=== PATIENT | female | born 1980 | race Caucasian/White ===

== ENCOUNTER 2020-03-04 15:31 | Outpatient (CLI) | payer BC, SELFPAY ==
--- NOTE | ~2020-03-04 | MM_ITS ---
EXAMINATION: MM screening [facility] BI w alex HISTORY: Screening mammogram TECHNIQUE: Craniocaudal and mediolateral oblique 3-D tomosynthesis images were obtained and synthetic 2-D images were generated. CAD analysis was submitted and interpreted. COMPARISON: 02/05/2019 bilateral digital screening mammogram BREAST PARENCHYMAL COMPOSITION: There are scattered areas of fibroglandular density. FINDINGS: There is no evidence of suspicious mass, calcification, or architectural distortion to sugg est malignancy in either breast. There has been no suspicious interval change. IMPRESSION: 1. No mammographic evidence of malignancy. 2. Recommend routine screening mammography in one year. BI-RADS Category 1: Negative Reviewed, dictated and finalized at location A.
== END 2020-03-04 15:32 | disposition home or self-care (01) ==
LOC: ANHIMG 15:34
PROVIDERS: Visit Provider Obstetrics & Gynecology
DX: Z12.31 Encounter for screening mammogram for malignant neoplasm of breast (principal)
CPT/HCPCS: 77063; 77067

== ENCOUNTER 2021-03-08 15:16 | Outpatient (CLI) | payer BC, SELFPAY ==
--- NOTE | ~2021-03-08 | MM_ITS ---
EXAMINATION: MM screening [facility] BI w alex HISTORY: Screening TECHNIQUE: Craniocaudal and mediolateral oblique 3-D tomosynthesis images were obtained and synthetic 2-D images were generated. CAD analysis was submitted and interpreted. COMPARISON: Comparison to multiple prior studies sequentially, with oldest reviewed study dated 02/05. BREAST PARENCHYMAL COMPOSITION: Breast composed of scattered areas of fibroglandular density. FINDINGS: There is no evidence of suspicious mass, calcification, or architectural distortion to sugg est malignancy in either breast. There has been no suspicious interval change. IMPRESSION: 1. No mammographic evidence of malignancy. 2. Recommend routine screening mammography in one year. BI-RADS Category 1: Negative Reviewed, dictated and finalized at location A.
== END 2021-03-08 15:17 | disposition home or self-care (01) ==
LOC: ANHIMG 15:19
PROVIDERS: Visit Provider Obstetrics & Gynecology
DX: Z12.31 Encounter for screening mammogram for malignant neoplasm of breast (principal)
CPT/HCPCS: 77063; 77067

== ENCOUNTER 2022-10-03 10:51 | Outpatient (CLI) | payer BC, SELFPAY ==
--- NOTE | ~2022-10-03 | MM_ITS ---
EXAMINATION: MM screening [facility] BI w alex HISTORY: Screening TECHNIQUE: Craniocaudal and mediolateral oblique 3-D tomosynthesis images were obtained and synthetic 2-D images were generated. CAD analysis was submitted and interpreted. COMPARISON: Comparison to multiple prior studies sequentially, with oldest reviewed study dated 02/05. BREAST PARENCHYMAL COMPOSITION: Breast composed of scattered areas of fibroglandular density FINDINGS: There are developing asymmetries bilaterally in the upper outer quadrant of both breasts. T here are no suspicious calcifications or architectural distortion. IMPRESSION: 1. Developing bilateral breast asymmetries. 2. Additional mammographic views and possible breast ultrasound are recommended. BI-RADS Category 0: Incomplete: Needs additional imaging evaluation. Reviewed, dictated and finalized at location B. TRICAL ASSEMBLER IMPRESSION: 1. Developing bilateral breast asymmetries. 2. Additional mammographic views and possible breast ultrasound are recommended . BI-RADS Category 0: Incomplete: Needs additional imaging evaluation.
== END 2022-10-03 10:52 | disposition home or self-care (01) ==
LOC: ANHIMG 10:56
PROVIDERS: Visit Provider Obstetrics & Gynecology
DX: Z12.31 Encounter for screening mammogram for malignant neoplasm of breast (principal); R92.8 Other abnormal and inconclusive findings on diagnostic imaging of breast
CPT/HCPCS: 77063; 77067

== ENCOUNTER 2022-10-30 13:48 | Outpatient (CLI) | payer BC, SELFPAY ==
--- NOTE | ~2022-10-30 | MMUS_ITS ---
EXAMINATION: MM diagnostic [facility] BI w alex, US breast BI complete HISTORY: Developing bilateral breast asymmetries reported on 10/03/2022 screening mammogram TECHNIQUE: Additional 3-D tomosynthesis images of both breasts were performed and synthetic 2-D image s were generated. CAD analysis was submitted and interpreted. High resolution complete bilateral aniceto st ultrasound examination including all 4 quadrants and subareolar areas was performed. COMPARISON: 10/03/2022, 03/08/2021, 03/04/2020, 02/05/2019 bilateral screening mammogram examinations. FINDINGS: MAMMOGRAPHIC FINDINGS: No suspicious mass or architectural distortion is evident. There is stable fibroglandular asymmetry s aaron 02/05/2019. No malignant calcification, skin thickening or retraction. No significant new or deve loping density is evident. ULTRASOUND: No suspicious mass or shadowing of either breast is detected. Right breast: 12:00: 4.7 x 5.7 mm sonolucency with through transmission posterior enhancement consistent with small cyst 6:00: Parallel circumscribed hypoechoic 3.3 x 6 mm lesion with through transmission, benign in appear ance 7:00: Parallel circumscribed sonolucency measuring approximately 2.5 x 5.8 mm, without suspicious sha dowing 9:00: 7 x 10 mm simple cyst with through transmission posterior enhancement 10:00: 8 x 12 mm simple cyst with through transmission and posterior enhancement Left breast: 3:00 5 cm from nipple: 3.5 x 7.4 mm cyst 3:00 8 cm from nipple: 5.6 x 9 mm cyst with through transmission, posterior enhancement IMPRESSION: 1. Benign findings 2. Routine annual mammographic screening is recommended. BI-RADS Category 2: Benign finding(s). Reviewed, dictated and finalized at location A. SER AUTOMATIC IMPRESSION: 1. Benign findings 2. Routine annual mammographic screening is recommended. BI-RADS Category 2: Benign finding(s).
== END 2022-10-30 13:49 | disposition home or self-care (01) ==
PROVIDERS: Visit Provider Obstetrics & Gynecology
DX: R92.8 Other abnormal and inconclusive findings on diagnostic imaging of breast (principal)
CPT/HCPCS: 76641; 77062; 77066; G0279

== ENCOUNTER 2024-02-21 16:16 | Outpatient (CLI) | payer BC, SELFPAY ==
--- NOTE | ~2024-02-21 | MM_ITS ---
EXAMINATION: MM screening [facility] BI w alex HISTORY: Screening mammogram TECHNIQUE: Craniocaudal and mediolateral oblique 3-D tomosynthesis images were obtained and synthetic 2-D images were generated. CAD analysis was submitted and interpreted. COMPARISON: 10/03/2022, 03/08/2021 BREAST PARENCHYMAL COMPOSITION:Dense: The breasts are heterogeneously dense, which may obscure small masses. FINDINGS: There is a 1.5 cm circumscribed mass at the upper, outer right breast. No suspicious mass, calcification, or architectural distortion are identified in either breast to suggest malignancy. The re has been no suspicious interval change. IMPRESSION: 1.5 cm circumscribed mass at the upper outer right breast. This probably represents an enlarging cy st given prior imaging findings, however repeat targeted ultrasound at this time is recommended to co nfirm this. BI-RADS Category 0: Incomplete: Needs additional imaging evaluation. Reviewed, dictated and finalized at [facility]. IMPRESSION: 1.5 cm circumscribed mass at the upper outer right breast. This probably repr esents an enlarging cyst given prior imaging findings, however repeat targeted ultrasound at this time is recommended to confirm this. BI-RADS Category 0: Incomplete: Needs additional imaging evaluation.
== END 2024-02-21 16:17 | disposition home or self-care (01) ==
PROVIDERS: Visit Provider Obstetrics & Gynecology
DX: Z12.31 Encounter for screening mammogram for malignant neoplasm of breast (principal); R92.8 Other abnormal and inconclusive findings on diagnostic imaging of breast
CPT/HCPCS: 77063; 77067

== ENCOUNTER 2024-02-26 09:22 | Outpatient (CLI) | payer BC, SELFPAY ==
--- NOTE | ~2024-02-26 | US_ITS ---
US breast RT limited DATE: 02/26/2024 10:03 INDICATION: 1.5 cm circumscribed mass at upper outer right breast reported on 02/21/2024 screening mamm ogram TECHNIQUE: Real-time imaging and color-flow imaging targeted to 1.5 cm upper-outer quadrant right loki ast mass COMPARISON: 10/30/2022 bilateral diagnostic mammogram and bilateral complete breast ultrasound 02/21/2024 bilateral screening mammogram FINDINGS: 10:30 o'clock 7 cm from nipple: 1.4 x 1.1 x 1.7 cm simple cyst with through transmission an d posterior enhancement, no internal vascularity, increased from 1.2 x 0.8 x 1 cm dimension on 10/30/19 23 IMPRESSION: Mildly increased size of simple cyst at 10:30 o'clock 7 cm from nipple since 10/30/2022 BI-RADS Category 2: Benign Recommendation: Routine mammographic screening Reviewed, dictated and finalized at Location A. Reviewed, dictated and finalized at location B. IMPRESSION: Mildly increased size of simple cyst at 10:30 o'clock 7 cm from nip ple since 10/30/2022 BI-RADS Category 2: Benign Recommendation: Routine mammographic screening
== END 2024-02-26 09:23 | disposition home or self-care (01) ==
PROVIDERS: Visit Provider Obstetrics & Gynecology
DX: R92.8 Other abnormal and inconclusive findings on diagnostic imaging of breast (principal)
CPT/HCPCS: 76642

== ENCOUNTER 2025-03-23 08:23 | Outpatient (CLI) | payer BC, SELFPAY ==
--- NOTE | ~2025-03-23 | MM_ITS ---
EXAMINATION: MM screening lyssa BI w alex HISTORY: Screening TECHNIQUE: Craniocaudal and mediolateral oblique 3-D tomosynthesis images were obtained and synthetic 2-D images were generated. CAD analysis was submitted and interpreted. COMPARISON: 02/05/2019 BREAST PARENCHYMAL COMPOSITION: Dense: The breasts are heterogeneously dense, which may obscure small masses FINDINGS: There is a mass in the upper outer quadrant of the right breast, middle third, best seen on MLO view. This was previously characterized as a cyst. There are developing asymmetries in the upper outer quadrant of the left breast on CC view. IMPRESSION: 1. Developing left breast asymmetries. Stable right mammogram. 2. Additional mammographic views and possible breast ultrasound are recommended. BI-RADS Category 0: Incomplete: Needs additional imaging evaluation. Reviewed, dictated and finalized at location A. IMPRESSION: 1. Developing left breast asymmetries. Stable right mammogram. 2. Additional mammographic views and possible breast ultrasound are recommended . BI-RADS Category 0: Incomplete: Needs additional imaging evaluation.
--- OUTSIDE RECORDS SUMMARY | 2025-03-23 08:40 | XMS_ITS | Continuity of Care Document ---
Author Organization [employer] Address [address] [place] [address] Phone Care Team Providers Care Pigment Weigher Name Role Phone Dylancarlos FONSECA Davian Unavailable Unavailable Allergies, Adverse Reactions, Alerts Substance Reaction Status Criticality No Known Allergies Active No Inform ation Medications Medication Instructions Dosage Effective Dates (start - stop) Status Comments levothyroxine 112 mcg tablet TAKE 1 TABLET BY MOUTH EVERYDAY AT BEDTIME - Active 11/10 (28) 1 mg-20 mcg (21)/75 mg (7) tablet TAKE 1 TABLET BY MOUTH EVERY DAY - Active Procedures Procedure Date Pt inelig neg scrn depres CBC, INC PLATELETS AND DIFFERENTIAL COMPREHEN METABOLIC PANEL CMP HEMOGLOBIN A1C HGA1C, GLYCO LIPID PANEL THYROID STIMULATION HORMONE(TSH) 2023 ROUTINE VENIPUNCTURE OFFICE [id number] BODY MASS INDEX DOCD SYST BP GE 130 - 139MM HG DIAST BP 80-89 MM HG Pt inelig neg scrn depres OFFICE [id number] BODY MASS INDEX DOCD SYST BP >= 140 MM HG6 IT DIAST BP >= 90 MM HG THYROID STIMULATION HORMONE(TSH) 2023 ROUTINE VENIPUNCTURE OFFICE [id number] BODY MASS INDEX DOCD SYST BP >= 140 MM HG6 IT DIAST BP >= 90 MM HG OFFICE [id number] BODY MASS INDEX DOCD SYST BP GE 130 - 139MM HG DIAST BP >= 90 MM HG Advance Directives Directive Yes / No Effective Date File Name No Information Encounters Encounter Description Practice Location Reason(s) For Visit Diagnoses Date Provider Providers Copied on Encounter [facility], [address], [place], [place], [id number], tel:[phone] [facility] No Information 5 Jorge Marcelo. [address] [place] [address], [id number], . tel:[phone] [facility], [address], [place], [place], [id number], tel:[phone] [facility] No Information 4 Jorge Marcelo. [address] [place] [address], [id number], . tel:[phone] OFFICE QYUPJ-WIO-C[facility], [address], [place], [place], [id number], tel:[phone] [facility] encounter (chief complaint) Body mass index [BMI] 31.0-31.9, adultFatigue, unspecified typeOther specified abnormal findings of blood chemistryHypothyr oidism, unspecified typePrimary insomnia 4 Jorge Marcelo. [address] [place] [address], [id number], . tel:[phone] Referring Provider: Davian Patel, [address] [place] [address], [address] . tel:[phone] OFFICE [id number]-FSQ-XFG [facility], [address], [place], [place], [id number], tel:[phone] [facility] encounter (chief complaint) Hypothyroidism, unspecified type 4 Jorge Marcelo. [address] [place] [address], [id number], . tel:[phone] Referring Provider: Davian Patel, [address] [place] [address], [address] . tel:[phone] OFFICE BWCWM-WEO-KMH [facility], [address], [place], [place], [id number], tel:[phone] [facility] encounter (chief complaint) Body mass index [BMI] 30.0-30.9, adultOther specified abnormal findings of blood chemistry 3 Jorge Marcelo. [address] [place] [address], [id number], . tel:[phone] Referring Provider: Davian Patel, [address] [place] [address], [id number] . tel:[phone] OFFICE TMMHM-QIX-NRR [facility], [address], [place], [place], [id number], tel:[phone] [facility] Patient encounter (chief complaint) Body mass index [BMI] 30.0-30.9, adultHypothyroidi sm, unspecified type 3 Jorge Marcelo. [address] [place] [address], [id number], . tel:[phone] Referring Provider: Davian Patel, [address] [place] [address], [id number] . tel:[phone] [facility], [address], [place], [place], [id number], tel:[phone] [facility] No Information 3 Jorge Marcelo. [address] [place] [address], [id number], . tel:[phone] [facility], [address], [place], [place], [id number], [place] tel:[phone] [facility] Hypothyroidism, unspecified typeScreening for diabetes mellitusChronic fatigueScreening for lipid disordersOther [facility] 3 Jorge Marcelo. [address] [facility], [place], [place], [id number], [place]. tel:[phone] Family History Family Member Type Diagnosis Age At Onset No Information Payers Payer name Insurance type Covered libertarian ID Authoriza tion(s) BS ACCESS BL [id number] Social History Type Description Quantity Date Captured Comments Alcohol Use Details Unknown Caffeine Use Details Unknown Tobacco Use Status No Information Smoking Status No Information Sex Female Sexual Orientation Straight or heterosexual Gender Identity Female Chief Complaint And Reason For Visit No Information Reason For Referral Reason For Referral No Information Plan Of Treatment Date Type Action Status Goal Dietary manageme nt education, guidance, and counseling completed Goal Dietary manageme nt education, guidance, and counseling completed Goal Dietary manageme nt education, guidance, and counseling completed Appointment Alexia Sheldon BOOKED History Of Present Illness Encounter Date Complaint History Of Prese nt Illness encounter Pt presents for her 6 mo f/u appointment.Patient seen today for complaint of really getting her thyroid checked in mother's labs as well as she is get some insomnia and with a little frequent urination but she is not sure if it is insomnia that is causing somata try some trazodone for her first and the other thing I can add to her would be oxybutynin and see if that makes a difference in encounter Pt presents for 6 mos f/u, with refills, doing finePatient seen today for a refill of her Synthroid she is doing well overall not having problems we will then check a TSH at this timeWill do a complete panel on and of course have her return if problems encounter pt presents for 6 mo f/u with med refills. wants spot on forehead and left marin she would liked to have looked atPatient here today to get a refill of her Synthroid and also get some labs done at [facility] but mom she was coming in and she said she is nervous because she has felt warmer than normal and negative temperature 99.5 presumably treated for sinus infection but will get tested for COVID when she gets home Patient encounter Patient is see n today for a complaint of her needing a refill of her thyroid the labs are overall pretty good cholesterol is a little high so she can watch her diet but otherwise she is doing pretty well Functional Status Date Functional Assessmen t No Information Instructions Date Instruction Additional Infor enmanuel Will check labs to s ee what they are and if the numbers are good we will continue her on her same dose Related to Hypothyroidism, unspecified type Trazodone 50 mg nightly Related to Primary insomnia CMP TSH today Related to Other specified abnormal findings of blood chemistry CBC today Related to Fatig ue, unspecified type Dietary management e ducation, guidance, and counseling Related to Body mass index (BMI) 31.0-31.9, adult Refilled her Synthroid check a T SH Related to Hypothyroidism, unspecified type Dietary management e ducation, guidance, and counseling Related to Body mass index (BMI) 30.0-30.9, adult We will refill her S ynthroid 0.112 daily and see her back in about 6 months or sooner with any problems Related to Hypothyroidism, unspecified type Dietary management e ducation, guidance, and counseling Related to Body mass index (BMI) 30.0-30.9, adult Assessments Type Assessment Date No Information Patient Care Teams Name Effective Dates (start - stop) Status Members No Information
--- OUTSIDE RECORDS SUMMARY | 2025-03-23 08:40 | XMS_ITS | Encounter Summary ---
Author Organization [facility] Address [address] [place] [address] Care Team Providers Care Baster Hand Name Role Phone Jonathon Mcmahan MD Primary Care Provider [phone] Encounter Details Date Type Department Care Team (Late st Contact Info) Description 08/12/2019 Lab Requisition [facility] [address] [facility] [place] [id number] Lia Martin MD [address] [facility] [address] [place] [address] Social History Tobacco Use Types Packs/Day Years Used Date Smoking Tobacco: Former Alcohol Use Standard Drinks/Week Comments No 0 (1 standard drink = 0.6 oz pur e alcohol) Comments No Sex and Gender Information Value Date Recorded Sex Assigned at Not on file 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 Gender Identity Not on file Sexual Orientation Not on file documented as of this encounter Plan of Treatment Not on file documented as of this encounter Procedures Procedure Name Priority Date/Time Associated Diagnosis Comments DERMATOPATH TECHNICAL REPORT Routine 08/11/2019 12:00 AM CDT documented in this encounter Results * DERMATOPATH TECHNICAL REPORT (08/11/2019 12:00 AM CDT) Case Report Dermatopathology Report Case: [id number] Authorizing Provider: Lia Martin MD Collected: 08/11/2019 12:00 AM Ordering Location: [facility] Received: 08/12/2019 12:27 PM Pathologist: Juan A Craig MD Specimen: Skin, left marin 4:51 PM CDT DERMATOPATHOLOGY LABORATORY Addendum 1 At the request of the diagnosing physician, the technical component for GMS was performed by [facility]. 4:51 PM T DERMATOPATHOLOGY LABORATORY Addendum electronically signed by Juan A Craig MD on 08/14/2019 at 1651 CDT Clinical History Eczema vs ISK vs NMSC. Hx of AD non-healing pink scaly plaque. 4:51 PM CDT DERMATOPATHOLOGY LABORATORY Gross Description Specimen A: Received is one formalin filled container labeled with the patient's name and designated left marin. The specimen consists of a shave measuring [id number]. Jar 0. [facility] performed the technical component only. 4:51 PM CDT DERMATOPATHOLOGY LABORATORY Embedded Images 4:51 PM CDT DERMATOPATHOLOGY LABORATORY DISCLAIMER An external and internal positive and negative controls are appropriate for the histochemical, immunohistochemical and immunofluorescence stain(s) in this case (if any), except where stated explicitly. The performance characteristics of the stain(s) cited in this report were developed and its performance characteristic determined by the Dermatopathology Laboratory at [facility], directed by Dr. Mary Craig. These tests need not be, and therefore are not, approved by the [place] Food and Drug Administration. The tests are used for clinical purposes. 4:51 PM T DERMATOPATHOLOGY LABORATORY at 1757 CDT Pathology/Cytolog y TISSUE SPECIMEN FROM SKIN / Unknown 08/11/2019 08/12/2019 12:27 PM CDT us Lia Martin MD LAB - PATHOLOGY/CYTOLOGY ORD ERABLES Edited Result - Final DERMATOPATHOLOGY LABORATORY [facility] - Department of Dermatology [address] Lab [address] [phone] documented in this encounter Visit Diagnoses Not on filedocumented in this encounter Care Teams Baster Hand Relationship Specialty Start Date End Date Jonathon Mcmahan MD [address] [address] PCP - General 01/05/10 documented as of this encounter
--- OUTSIDE RECORDS SUMMARY | 2025-03-23 08:41 | XMS_ITS | Clinical Summary ---
Author Organization [facility] Address [address] [place] [address] Care Team Providers Care Swimmer Name Role Phone Jonathon Mcmahan MD Primary Care Provider [phone] Source Comments [facility],non-owned Affiliates and Associated Physician Practices is amultiple site organization consisting of ambulatory clinics and hospital sitesin [place], [place], [place] and [place]. This disclosure is being madepursuant to the Care Everywhere program and may not contain all information available regarding this patient. Last updated 18.[facility] Allergies No known active allergies Medications * Be aware that medications may not be up to date on this document. Alwaysverify current medications with the patient. rx 1 60-1 MG tablet Take 1 Tab by mouth daily. Active ibuprofen (MOTRIN) 600 MG tablet Take 1 Tab by mouth every 4 hours as needed for Pain. 30 0 02/16/2010 Active docusate sodium (COLACE) 100 MG capsule Take 1-2 Caps by mouth nightly as needed for Constipation . 30 1 02/16/2010 Active w/o Vit A; w/ Fe Fum-FA (-U) 106-1 MG capsule Take 1 Cap by mouth daily. 100 0 02/16/2010 Active norethindrone (ORTHO MICRONOR; NOR-QD; NEW; DUKE-BE; HANSEL; JOLIVETTE) 0.35 MG tablet Take 1 Tab by mouth daily. 3 packs 3 02/16/2010 Active Active Problems Problem Noted Date Diagnosed Date Subchorionic hemorrhage 02/14/2010 Overview (02/14/2010): Noted on scan July with some vaginal bleeding. Resolved. 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 Peds Surgery consult done by Dr. Sanchez, Neonatology consult done by Dr. Cole. Genetics consult done by Jaz Dickson. Footprints consult by Sr. Marjan Wu. Delivered on 02/14/10 Dr. Sanchez's recommendation: Standard care. Please obtain chest x-ray after delivery. Only transfer to [facility] if respiratory or feeding symptoms. If asymptomatic, please follow up with Dr. Sanchez in outpatient clinic 2-4 weeks after discharge. Planned GA of delivery: term Planned location of delivery: [facility] Planned mode of delivery: Planned care after delivery: Neonatology evaluation. Please transport to [facility] if respiratory or feeding symptoms. 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 12/02/2009 Overview (01/15/2016): 2015 IMO [facility] Family History Medical History Relation Name Comments COPD - Chronic Obstructive Pulmonary Disease Maternal Grandmother Arthritis Mother Cancer Paternal Grandfather COPD - Chronic Obstructive Pulmonary Disease Paternal Grandmother Relation Name Status Comments Father Alive Maternal Grandfather Maternal Grandmother Alive Mother Alive Other 1 nephew Alive Other 2 Paternal Grandfather Paternal Grandmother Alive Social History Tobacco Use Types Packs/Day Years Used Date Smoking Tobacco: Former Alcohol Use Standard Drinks/Week Comments No 0 (1 standard drink = 0.6 oz pur e alcohol) Comments No Sex and Gender Information Value Date Recorded Sex Assigned at Not on file 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 Gender Identity Not on file Sexual Orientation Not on file Last Filed Vital Signs Vital Sign Reading Time Taken Comments Blood Pressure 118/74 02/16/2010 8:27 AM CDT Pulse 74 02/16/2010 8:27 AM CDT Temperature 35.9 C (96.7 F) 02/16/2010 8:27 AM CDT Respiratory Rate 18 02/16/2010 8:27 AM CDT Oxygen Saturation 98% 02/16/2010 8:27 AM CDT Inhaled Oxygen Concentration - - Weight 79.8 kg (176 lb) 02/14/2010 2:37 AM CDT Height 157.5 cm (5' 2) 02/14/2010 2:37 AM CDT Body Mass Index 32.19 02/14/2010 2:37 AM CDT Plan of Treatment Health Maintenance Due Date Last Done Comments COLOGUARD (AGES 45-75) - COL ON CA SCREENING 1978 COLON MONITORING 1978 COLONOSCOPY - COLON CA SCREENING 1978 CT COLONOGRAPHY - COLON CA SCREENING 1978 Colorectal Cancer Screening 1978 FIT - COLON CA SCREENING 1978 FLEX SIG - COLON CA SCREENING 1978 LIPID TESTING 1978 MAMMOGRAM 1978 HIV SCREENING 1993 HEPATITIS C SCREENING 09/20/1996 DTAP/TDAP/TD VACCINES (1 - Tdap) 1997 HEPATITIS B VACCINE (1 of 3 - 19+ 3-dose series) 1997 COVID-19 VACCINE (1 - 2023-2 5 season) 2024 DEPRESSION SCREENING 10/22/2024 INFLUENZA VACCINE (Season Ended) 2025 ZOSTER VACCINE (1 of 2) 2028 HIB VACCINE Aged Out No longer eligi ble based on patient's age to complete this topic HPV VACCINE Aged Out No longer eligi ble based on patient's age to complete this topic MENINGOCOCCAL (Group B) VACC INE SHARED DECISION-MAKING Aged Out No longer eligibl e based on patient's age to complete this topic MENINGOCOCCAL GROUPS A/C/Y/W VACCINE Aged Out No longer eligible b ased on patient's age to complete this topic PNEUMOCOCCAL VACCINE Aged Out No long er eligible based on patient's age to complete this topic Insurance [employer] Advance Directives * Full Code (Latest Code Status on File) Date Activated Date Inactivated Comments 02/14/2010 1:19 PM 02/17/2010 1:33 AM Care Teams Swimmer Relationship Specialty Start Date End Date Jonathon Mcmahan MD [address] [address] PCP - General 01/05/10
--- OUTSIDE RECORDS SUMMARY | 2025-03-23 08:41 | XMS_ITS | Clinical Summary ---
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 Gender Identity Not on file Sexual Orientation Not on file Plan of Treatment Health Maintenance Due Date Last Done Comments Hepatitis C Virus (HCV) Screening 1978 TdaP Immunization 1978 Hepatitis B Immunization (1 of 3 - 19+ 3-dose series) 1997 Pap Smear 1999 Cervical Cancer Screening (CCS) 2008 HPV/Cotest 2008 Discussion re Starting/Frequency of Mammograms 2018 Colonoscopy 2023 Colorectal Cancer Screening 2023 Influenza Immunization (#1) 2024 SARS-COV-2 Immunization ( season) 2024 02/15/2021, 01/24/2021 Respiratory Syncytial Virus (RSV) Immunization (Adult) (1 - 1-dose 75+ series) 2053 Meningococcal Immunization (ACWY) Aged Out No longer eligible b ased on patient's age to complete this topic Pneumococcal Immunization Combined Aged Out No longer eligible b ased on patient's age to complete this topic Rotavirus Immunization Aged Out No lo nger eligible based on patient's age to complete this topic
== END 2025-03-23 08:24 | disposition home or self-care (01) ==
PROVIDERS: Visit Provider Obstetrics & Gynecology
DX: Z12.31 Encounter for screening mammogram for malignant neoplasm of breast (principal); R92.8 Other abnormal and inconclusive findings on diagnostic imaging of breast
CPT/HCPCS: 77063; 77067

== ENCOUNTER 2025-05-12 12:53 | Outpatient (CLI) | payer BC, SELFPAY ==
--- NOTE | ~2025-05-12 | MM_ITS ---
EXAMINATION: MM diagnostic lyssa LT w alex INDICATION: 44-year old female; BI-RADS 0, callback to evaluate Left breast developing left breast as ymmetries. COMPARISON: 03/23/2025 through 03/04/2020 TECHNIQUE: Digital breast tomosynthesis True lateral view and spot compression pain CC and MLO views of Left breast were obtained with computer-aided detection to assist in interpretation of the study. FINDINGS: The breasts are heterogeneously dense, which may obscure small masses. The asymmetries seen in the upper outer Left breast on the screening mammogram does not persist with additional views, compatible with normal overlapping tissue. IMPRESSION: Left breast asymmetry represents superimposition of fibroglandular tissue. No further investigation i s necessary. RECOMMENDATION: Annual screening mammography in 12 months BI-RADS 2, BENIGN Reviewed, dictated and finalized at location B. IMPRESSION: Left breast asymmetry represents superimposition of fibroglandular tissue. No f urther investigation is necessary. RECOMMENDATION: Annual screening mammography in 12 months BI-RADS 2, BENIGN
--- OUTSIDE RECORDS SUMMARY | 2025-05-12 12:56 | XMS_ITS | Encounter Summary ---
Author Organization [facility] Address [address] [place] [address] Care Team Providers Care Middle School Reading Teacher Name Role Phone Jonathon Mcmahan MD Primary Care Provider [phone] Encounter Details Date Type Department Care Team (Late st Contact Info) Description 08/12/2019 Lab Requisition [facility] [address] [place] [id number] Lia Martin MD [address] [facility] [address] [place] [address] Social History Tobacco Use Types Packs/Day Years Used Date Smoking Tobacco: Former Alcohol Use Standard Drinks/Week Comments No 0 (1 standard drink = 0.6 oz pur e alcohol) Comments No Sex and Gender Information Value Date Recorded Sex Assigned at Not on file 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 Gender Identity Not on file Sexual Orientation Not on file documented as of this encounter Plan of Treatment Not on file documented as of this encounter Procedures Procedure Name Priority Date/Time Associated Diagnosis Comments DERMATOPATH TECHNICAL REPORT Routine 08/11/2019 12:00 AM CDT documented in this encounter Results * DERMATOPATH TECHNICAL REPORT (08/11/2019 12:00 AM CDT) Case Report Dermatopathology Report Case: [id number] Authorizing Provider: Lia Martin MD Collected: 08/11/2019 12:00 AM Ordering Location: [facility] Received: 08/12/2019 12:27 PM Pathologist: Juan A Craig MD Specimen: Skin, left marin 4:51 PM CDT DERMATOPATHOLOGY LABORATORY Addendum 1 At the request of the diagnosing physician, the technical component for GMS was performed by [facility] Dermatopathology Laboratory. 4:51 PM T DERMATOPATHOLOGY LABORATORY [...] The specimen consists of a shave measuring [id number]. Jar 0. [facility]ermat[facility] performed the technical component only. [...] characteristic determined by the Dermatopathology Laboratory at [facility], directed by Dr. Mary Craig. These tests [...] ERABLES Edited Result - Final DERMATOPATHOLOGY LABORATORY [facility] - Department of Dermatology [address]th [address] Lab [address] [phone] documented in this encounter Visit Diagnoses Not on filedocumented in this encounter Care Teams Middle School Reading Teacher Relationship Specialty Start Date End Date Jonathon Mcmahan MD [address] [address] PCP - General 01/05/10 documented as of this encounter
--- OUTSIDE RECORDS SUMMARY | 2025-05-12 12:56 | XMS_ITS | Clinical Summary ---
Author Organization [facility] Address [address] [place] [address] Care Team Providers Care Food Service Name Role Phone Jonathon Mcmahan MD Primary Care Provider [phone] Source Comments [facility],non-owned Affiliates and Associated Physician Practices is amultiple site organization consisting of ambulatory clinics and hospital sitesin [place], [place], [place] and [place]. This disclosure is being madepursuant to the Care Everywhere program and may not contain all information available regarding this patient. 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 Peds Surgery consult done by Dr. Sanchez, Neonatology consult done by Dr. Cole. Genetics consult done by Jaz Dickson. Footprints consult by Sr. Marjan Wu. Delivered infant on 02/14/10 Dr. Sanchez's recommendation: Standard care. Please obtain chest x-ray after delivery. Only transfer to [facility] if respiratory or feeding symptoms. If asymptomatic, please follow up with Dr. Sanchez in outpatient clinic 2-4 weeks after discharge. Planned GA of delivery: term Planned [facility] delivery: [facility] Planned mode of delivery: Planned care after delivery: Neonatology evaluation. Please transport to [facility] if respiratory or feeding symptoms. 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
--- OUTSIDE RECORDS SUMMARY | 2025-05-12 12:56 | XMS_ITS | Clinical Summary ---
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
== END 2025-05-12 12:54 | disposition home or self-care (01) ==
LOC: ANHIMG 12:54
PROVIDERS: Visit Provider Obstetrics & Gynecology
DX: R92.8 Other abnormal and inconclusive findings on diagnostic imaging of breast (principal)
CPT/HCPCS: 77061; 77065; G0279